=== PATIENT | female | born 1940 | race Caucasian/White ===

== ENCOUNTER 2018-04-09 10:41 | Inpatient (IN) | payer MEDICARE ==
[~2018-04-09] VITALS: Ht 172.7 cm; Wt 51.7 kg
[~2018-04-09 10:41] MED LIST: ALPR-409 PO; LISI40TA4 PO; SIMV5TAB6 PO; [UNRECOGNIZED DRUG - REMARK] PO
[2018-04-09 10:57] LABS: BASOPHILS % (AUTO) 0.6 % (0.0-5.0); EOSINOPHILS % (AUTO) 0.6 % (0.0-8.0); HEMATOCRIT 37.8 % (36-48); LYMPHOCYTES % (AUTO) 21.7 % (21.0-51.0); MEAN CORPUSCULAR HEMOGLOBIN 38.5 pg (27.0-33.0); MEAN CORPUSCULAR HGB CONC 36.3 g/dL (32.0-36.0); MONOCYTES % (AUTO) 9.8 % (3.0-13.0); NEUTROPHILS % (AUTO) 67.3 % (40.0-77.0); NUCLEATED RED BLOOD CELLS 0.1 % (0.0-0.19); PLATELET COUNT (AUTO) 340 K/uL (130-400); RED BLOOD CELL COUNT(AUTO) 3.57 MIL/uL (4.00-5.50); RED CELL DISTRIBUTION WIDTH 14.1 % (11.0-15.5); WHITE BLOOD COUNT (AUTO) 8.1 K/uL (4.8-10.8)
[2018-04-09 11:23] LABS: ALANINE AMINOTRANSFERASE 32 U/L (12-78); ALBUMIN 2.6 g/dL (3.5-5.0); AMYLASE 22 U/L (25-115); ASPARTATE AMINOTRANSFERASE 50 U/L (10-37); CARBON DIOXIDE 42 mmol/L (21-32); CREATINE KINASE MB < 0.5 ng/mL (0.5-3.6); CREATINE KINASE, TOTAL 30 U/L (21-232); CREATININE 1.2 mg/dL (0.5-1.5); GLOMERULAR FILTR. RATE CALC 47 mL/min (>60); GLUCOSE,RANDOM 90 mg/dL (70-105); LIPASE 124 U/L (114-286); SODIUM SERUM 129 mmol/L (136-145); UREA NITROGEN, BLOOD 9 mg/dL (7-18)
[2018-04-09 11:24] LABS: CHLORIDE 80 mmol/L (101-111); POTASSIUM 2.3 mmol/L (3.5-5.1)
[2018-04-09 11:25] LABS: INR 0.98 (0.85-1.15); PARTIAL THROMBOPLASTIN TIME 26.7 SEC (26.3-35.5); PROTHROMBIN TIME 10.3 SEC (9.6-11.6)
[2018-04-09] MEDS ORDERED: SODIUM CHLORIDE 0.9% 1000ML 1,000 ML IV ONE (11:45)
[2018-04-09] MEDS ORDERED: POTASSIUM BICARB/CIT AC 25 MEQ TABLET.EFF ONE (11:45)
[2018-04-09] MEDS ORDERED: MAGNESIUM 2GM PREMIX 50ML 50 ML IV ONE (14:01)
[2018-04-09 16:30] VITALS: BP 111/67
[2018-04-09 19:00] VITALS: BP 98/60
[2018-04-09] MEDS ORDERED: POTASSIUM CHLORIDE 10% ELIXIR 20 MEQ/15 ML UDCUP PO ONE (19:00)
[2018-04-09 23:42] LABS: ALCOHOL, BLOOD < 3 mg/dL (0-10)
[2018-04-09] MEDS ORDERED: SODIUM CHLORIDE 0.9% 1000ML 1,000 ML IV SCH (23:45)
[2018-04-09 23:47] LABS: POTASSIUM 2.7 mmol/L (3.5-5.1)
[2018-04-10] VITALS: BP 93/55
[2018-04-10] MEDS ORDERED: LIDOCAINE HCL-MPF 1% 2ML VIAL IVP PRN (00:30)
[2018-04-10] MEDS ORDERED: POTASSIUM CHLORIDE 20MEQ/100ML 100 ML IV PRN (00:30)
[2018-04-10] MEDS ORDERED: POTASSIUM CHLORIDE 20MEQ/100ML 100 ML IV ONE (01:54)
[2018-04-10] MEDS ORDERED: LIDOCAINE HCL-MPF 1% 2ML VIAL ONE (01:55)
[2018-04-10 03:57] VITALS: BP 99/60
[2018-04-10 05:29] LABS: BASOPHILS % (AUTO) 0.6 % (0.0-5.0); EOSINOPHILS % (AUTO) 1.3 % (0.0-8.0); HEMATOCRIT 30.9 % (36-48); LYMPHOCYTES % (AUTO) 21.9 % (21.0-51.0); MEAN CORPUSCULAR HEMOGLOBIN 37.8 pg (27.0-33.0); MEAN CORPUSCULAR HGB CONC 35.1 g/dL (32.0-36.0); MEAN CORPUSCULAR VOLUME 107.5 fL (79-99); MONOCYTES % (AUTO) 11.5 % (3.0-13.0); NEUTROPHILS % (AUTO) 64.7 % (40.0-77.0); PLATELET COUNT (AUTO) 291 K/uL (130-400); RED BLOOD CELL COUNT(AUTO) 2.87 MIL/uL (4.00-5.50); RED CELL DISTRIBUTION WIDTH 13.7 % (11.0-15.5); WHITE BLOOD COUNT (AUTO) 5.1 K/uL (4.8-10.8)
[2018-04-10 05:46] LABS: ALBUMIN 1.9 g/dL (3.5-5.0); BILIRUBIN,TOTAL 0.7 mg/dL (0.2-1.0); CREATININE 0.9 mg/dL (0.5-1.5); TOTAL PROTEIN, SERUM 5.3 g/dL (6.0-8.3)
[2018-04-10 06:00] LABS: POTASSIUM 2.7 mmol/L (3.5-5.1)
[2018-04-10 07:43] VITALS: BP 114/70
[2018-04-10] MEDS: ENOXAPARIN SODIUM 40 MG/0.4 ML SYRINGE SQ SCH (08:59)
[2018-04-10] MEDS: FAMOTIDINE 20MG TAB 20 MG TAB PO SCH ×2 (08:59→20:39)
[2018-04-10] MEDS: POTASSIUM CHLORIDE 10% ELIXIR 20 MEQ/15 ML UDCUP PO PRN (09:04)
[2018-04-10] MEDS: POTASSIUM CHLORIDE 20 MEQ ERTAB PO PRN ×3 (09:05→18:22)
[2018-04-10] MEDS ORDERED: THIAMINE HCL 100 MG TABLET PO SCH (09:30)
[2018-04-10] MEDS ORDERED: AMILORIDE HCL 5 MG TABLET PO SCH (09:30)
[2018-04-10] MEDS ORDERED: FOLIC ACID 1 MG TABLET PO SCH (09:30)
[2018-04-10] MEDS ORDERED: ERGO500014 PO (10:36)
[2018-04-10] MEDS ORDERED: VIT1TABL81 PO (10:36)
[2018-04-10] MEDS ORDERED: LEVO25TA54 PO (10:36)
[2018-04-10] MEDS ORDERED: FURO20TA4 PO (10:36)
[2018-04-10] MEDS ORDERED: ESTR1.5T5 PO (10:36)
[2018-04-10 12:01] VITALS: BP 90/54
[2018-04-10] MEDS ORDERED: FOLIC ACID 1 MG TABLET ONE (13:41)
[2018-04-10] MEDS ORDERED: THIAMINE HCL 100 MG TABLET ONE (13:43)
[2018-04-10] MEDS: DEXTROSE 5 % AND 0.9 % NACL 1,000 ML IV SCH ×3 (13:46→20:45)
[2018-04-10 16:00] VITALS: BP 89/56
[2018-04-10 19:27] VITALS: BP 94/60
[2018-04-11] VITALS: BP 106/74
[2018-04-11 04:00] VITALS: BP 120/78
[2018-04-11] MEDS: POTASSIUM CHLORIDE 10% ELIXIR 20 MEQ/15 ML UDCUP PO PRN ×2 (04:00→05:53)
[2018-04-11 05:25] LABS: MEAN CORPUSCULAR HEMOGLOBIN 38.7 pg (27.0-33.0); MEAN CORPUSCULAR HGB CONC 35.6 g/dL (32.0-36.0); MEAN CORPUSCULAR VOLUME 108.8 fL (79-99); PLATELET COUNT (AUTO) 307 K/uL (130-400); RED BLOOD CELL COUNT(AUTO) 2.85 MIL/uL (4.00-5.50); WHITE BLOOD COUNT (AUTO) 5.2 K/uL (4.8-10.8)
[2018-04-11 05:37] LABS: BAND NEUTROPHILS % (MANUAL) 1 % (0-2); BASOPHILS % (MANUAL) 1 % (0-2); EOSINOPHILS % (MANUAL) 2 % (1-6); LYMPHOCYTES % (MANUAL) 24 % (22-44); MAN.DIFF COMMENT-IMPRESSION MANUAL DIFFERENTIAL; MONOCYTES % (MANUAL) 10 % (2-9); SEGMENTED NEUTROPHILS % 62 % (40-70)
[2018-04-11 05:38] LABS: PLATELET MORPHOLOGY COMMENT ADEQUATE
[2018-04-11 05:46] LABS: CREATININE 0.9 mg/dL (0.5-1.5); MAGNESIUM 1.5 mg/dL (1.80-2.40); PHOSPHORUS 1.5 mg/dL (2.5-4.9); POTASSIUM 3.4 mmol/L (3.5-5.1); THYROID STIMULATING HORMONE 4.96 uIU/mL (0.36-3.74)
[2018-04-11] MEDS ORDERED: DIATR MEGLU/DIATRIZOATE SODIUM 30 ML BOTTLE ONE (07:50)
[2018-04-11 08:00] VITALS: BP 107/70
[2018-04-11] MEDS: POTASSIUM CHLORIDE 20 MEQ ERTAB PO PRN (08:32)
[2018-04-11] MEDS: THIAMINE HCL 100 MG TABLET PO SCH (08:32)
[2018-04-11] MEDS: FOLIC ACID 1 MG TABLET PO SCH (08:32)
[2018-04-11] MEDS: FAMOTIDINE 20MG TAB 20 MG TAB PO SCH ×2 (08:32→20:07)
[2018-04-11] MEDS: ENOXAPARIN SODIUM 40 MG/0.4 ML SYRINGE SQ SCH (08:32)
[2018-04-11] MEDS ORDERED: MAGNESIUM SULFATE 1 GM in SODIUM CHLORIDE 0.9% 50 ML IV SCH (09:45)
[2018-04-11] MEDS ORDERED: POTASSIUM PHOS 15 mMOL+NS250ML 250 ML IV SCH (09:45)
[2018-04-11 11:00] VITALS: BP 103/62
[2018-04-11] MEDS ORDERED: IOHEXOL-350 75 ML VIAL IV ONE (12:30)
[2018-04-11] MEDS: DEXTROSE 5 % AND 0.9 % NACL 1,000 ML IV SCH (15:44)
[2018-04-11 16:26] VITALS: BP 121/74
[2018-04-11 19:27] VITALS: BP 108/68
[2018-04-12] VITALS: BP 131/84
[2018-04-12] MEDS: DEXTROSE 5 % AND 0.9 % NACL 1,000 ML IV SCH ×2 (01:30→06:30)
[2018-04-12 03:38] VITALS: BP 137/90
[2018-04-12 07:30] VITALS: BP 111/71
[2018-04-12] MEDS: THIAMINE HCL 100 MG TABLET PO SCH (09:09)
[2018-04-12] MEDS: FAMOTIDINE 20MG TAB 20 MG TAB PO SCH (09:09)
[2018-04-12] MEDS: FOLIC ACID 1 MG TABLET PO SCH (09:09)
[2018-04-12] MEDS: ENOXAPARIN SODIUM 40 MG/0.4 ML SYRINGE SQ SCH (09:10)
[2018-04-12 11:00] VITALS: BP 101/68
[2018-04-12] MEDS ORDERED: AMILORIDE HCL 5 MG TABLET PO SCH (12:30)
[2018-04-12 16:00] VITALS: BP 114/66
[2018-04-13] MEDS ORDERED: AMILORIDE HCL 5 MG TABLET PO SCH (09:00)
[2018-04-13] MEDS ORDERED: FLUOXETINE HCL 10 MG CAPSULE PO SCH (09:00)
== END 2018-04-12 17:31 | disposition home or self-care (01) | DRG 682 ==
LOC: EDH 10:41 → EDHIP 13:20 → 3CH 17:08
PROVIDERS: ADMIT Internal Medicine Nephrology; ATTEND Internal Medicine Nephrology
DX: N17.9 Acute kidney failure, unspecified (principal); E43 Unspecified severe protein-calorie malnutrition; E87.1 Hypo-osmolality and hyponatremia; F13.20 Sedative, hypnotic or anxiolytic dependence, uncomplicated; E87.3 Alkalosis; R62.7 Adult failure to thrive; E87.6 Hypokalemia; F10.10 Alcohol abuse, uncomplicated; R26.2 Difficulty in walking, not elsewhere classified; D53.9 Nutritional anemia, unspecified; F03.90 Unspecified dementia, unspecified severity, without behavioral disturbance, psychotic disturbance, mood disturbance, and anxiety; F17.210 Nicotine dependence, cigarettes, uncomplicated; F32.9 Major depressive disorder, single episode, unspecified; E78.5 Hyperlipidemia, unspecified; G89.29 Other chronic pain; K80.20 Calculus of gallbladder without cholecystitis without obstruction; Z90.710 Acquired absence of both cervix and uterus; Z88.0 Allergy status to penicillin
CPT/HCPCS: 36415; 71045; 74178; 76700; 80048; 80053; 82140; 82150; 82550; 82553; 83690; 83735; 84100; 84132; 84443; 84484; 85025; 85610; 85730; 93005; 97039; G0480; J1650; J3475; J3480; J3490; J7030; J7042; Q9963; Q9967